=== PATIENT | female | born 1990 | race Caucasian/White ===

== ENCOUNTER 2020-12-03 16:57 | Inpatient (IN) | payer OTHER, SELFPAY ==
[2020-12-03] VITALS (10 sets, daily range): BP systolic 130–140; BP diastolic 57–75; PULSE 70–79; RESP 16–18; TEMP 36.8; BMI 39.4
--- OUTSIDE RECORDS SUMMARY | 2020-12-03 17:04 | XMS_ITS ---
:1990 Author Care Team Providers Name Role Phone Edwige Martínez Primary Care Provider Unavailable Allergies Code Code System Name Reaction Severity Status Onset NKDA ? Medications Name Status Start Date Stop Date ? ? OneTouch Delica Plus Lancet 33 gauge Active ? Not available USE FOUR TIMES DAILY TO TEST BLOOD SUGAR OneTouch Verio Reflect Meter Active ? Not available USE TO TEST BLOOD SUGAR FOUR TIMES DAILY OneTouch Verio test strips Active ? Not a vailable USE FOUR TIMES DAILY TO TEST BLOOD SUGAR Active ? Not available Problems Name Status Onset Date Source ? Active 05/28/2020 ? Procedures Date Name Performed by ? 05/25/2020 US, Obstetric, Nuchal Translucency Marykenny ille [address] [place] [address] ([address]) 07/22/2020 US, Obstetric, 2Nd or 3Rd Trimester Lucinda aguirre [address] [place] [address] ([address]) 08/21/2020 US, Obstetric, Follow-up [place] [address] [place] [address] ([address]) 10/05/2020 , Obstetric, Follow-up [place]
--- OUTSIDE RECORDS SUMMARY | 2020-12-03 17:04 | XMS_ITS | Encounter Summary ---
:1990 Author Reason for Visit None recorded. Assessment and Plan 1. Maternal obesity complicating , childbirth and the puerperium, antepartum ? non-stress test Discussion Note: None recorded.Patient educational handouts: No information available. Plan of Care Reminders Provider Appointments Ob Routine 12/08/2020 Ajit Batres, 10:00AM CNM ? Return to on or around [facility] 01/07/2021 MD Kirstie Lab None ? ? recorded. Referral None ? ? recorded. Procedures None ? ? recorded. Surgeries None ? ? recorded. Imaging Non-stress 11/27/2020 [place] Test Medications Name Start Date ? ? OneTouch Delica Plus Lancet 33 gauge ? USE FOUR TIMES DAILY TO TEST BLOOD SUGAR OneTouch Verio Reflect Meter ? USE TO TEST BLOOD SUGAR FOUR TIMES DAILY OneTouch Verio test strips ? USE FOUR TIMES DAILY TO TEST BLOOD SUGAR ? Medications Administered None recorded. Vitals Blood Pressure 131/86 mm[Hg] Results Lab Results None recorded. Allergies Code Code System Name Reaction Severity Onset NKDA ? ? ?
--- OUTSIDE RECORDS SUMMARY | 2020-12-03 17:04 | XMS_ITS | Encounter Summary ---
:1990 Author Reason for Visit OB visit 39wks Assessment and Plan 1. Routine care 2. -induced hypertensio n ? CBC w/ auto diff ? CMP, serum or plasma ? uric acid, serum or plasma Discussion Note: None recorded.Patient educational handouts: No information available. Plan of Care Reminders Provider Appointments Ob Routine 12/08/2020 Ajit Batres, 10:00AM CNM ? Return to on or around [facility] 01/07/2021 MD Kirstie Lab CBC W/ 12/01/2020 [facility] (Lab) ? CMP, Serum 12/01/2020 [facility] or Plasma [facility] (Lab) ? Uric Acid, 12/01/2020 [facility] Serum or Plasma [facility] (Lab) Referral None ? ? recorded. Procedures None ? ? recorded. Surgeries None ? ? recorded. Imaging None ? ? recorded. Medications Name Start Date ? ? OneTouch Delica Plus Lancet 33 gauge ? USE FOUR TIMES DAILY TO TEST BLOOD SUGAR OneTouch Verio Reflect Meter ? USE TO TEST BLOOD SUGAR FOUR TIMES DAILY
--- OUTSIDE RECORDS SUMMARY | 2020-12-03 17:04 | XMS_ITS | Encounter Summary ---
:1990 Author Reason for Visit None recorded. Assessment and Plan 1. Gestational diabetes mellitus , class A>1< Pt here for diet teaching. Adela t over ideal ranges for FBS and pp BS. Went over carb counting and carb ranges for e ach meal/snack. Gave ideas for foods to eat for meals/snacks. Discussed drink option s and to avoid soda and juice. Told pt she can go online to ADA for meal options or to look up low carb meal recipes online for ideas as well. Pt picked up glucometer y esterday, but forgot to bring in BS log. Pt states fasting yesterday was 94 and toda y was 96. Recommended high protein bedtime snack and exercise to see if this helps fasting levels. Told pt to continue checking BS QID and adjusting diet to follow low carb diet to try to keep BS within normal range. Pt aware if sugars aren't control led by diet we would discuss starting insulin. Went over NST schedule with pt and importance of keeping these appts and checking BS for her and baby's health. P t will bring in BS to appt on 10/05/20 for review. Pts questions were answered and pt verbalized understanding. bnROBBIN badillo ? non-stress test Discussion Note: None recorded.Patient educational handouts: No information available. Plan of Care Reminders Provider Appointments Ob Routine 12/08/2020 Ajit Batres, 10:00AM CNM ? Return to on or around [facility] 01/07/2021 MD Kirstie Lab None ? ? recorded. Referral None ? ? recorded. Procedures None ? ? recorded.
--- OUTSIDE RECORDS SUMMARY | 2020-12-03 17:05 | XMS_ITS | Encounter Summary ---
:1990 Author Reason for Visit OB visit Assessment and Plan Assessment Note Patient is ___weeks . Discu ssed plan. 1. Routine care Discussion Note: None recorded.Patient educational handouts: No [...] SUGAR ? Medications Administered None recorded. Vitals Height Weight BMI Blood Pressure 5 ft 5 in 257 lbs 42.8 kg/m2 132/81 mm[Hg] Results Lab Results None recorded. Allergies Code Code System Name Reaction Severity Onset NKDA ? ?
--- OUTSIDE RECORDS SUMMARY | 2020-12-03 17:05 | XMS_ITS | Encounter Summary ---
:1990 Author Reason for Visit None recorded. Assessment and Plan 1. Gestational diabetes mellitus , class A>1< ? non-stress test Discussion Note: None recorded.Patient educational handouts: No information available. Plan of Care Reminders Provider Appointments Ob Routine 12/08/2020 Ajit Batres, 10:00AM CNM ? Return to on or around [facility] 01/07/2021 MD Kirstie Lab None ? ? recorded. Referral None ? ? recorded. Procedures None ? ? recorded. Surgeries None ? ? recorded. Imaging Non-stress 11/24/2020 Roxie brunner Test Medications Name Start Date ? ? OneTouch Delica Plus Lancet 33 gauge ? USE FOUR TIMES DAILY TO TEST BLOOD SUGAR OneTouch Verio Reflect Meter ? USE TO TEST BLOOD SUGAR FOUR TIMES DAILY OneTouch Verio test strips ? USE FOUR TIMES DAILY TO TEST BLOOD SUGAR ? Medications Administered None recorded. Vitals None recorded. Results Lab Results None recorded. Allergies Code Code System Name Reaction Severity Onset NKDA ? ? ? Problems Name Status Onset Date Source ? Preg
--- OUTSIDE RECORDS SUMMARY | 2020-12-03 17:05 | XMS_ITS | Encounter Summary ---
:1990 Author Reason for Visit None recorded. Assessment and Plan 1. Maternal obesity complicating , childbirth and the puerperium, antepartum ? US, obstetric, biophysical profile + non-stress test ? US, obstetric, follow-up Discussion Note: None recorded.Patient educational handouts: No information available. Plan of Care Reminders Provider Appointments Ob Routine 12/08/2020 Ajit Batres, 10:00AM CNM ? Return to on or around [facility] 01/07/2021 MD Kirstie Lab None ? ? recorded. Referral None ? ? recorded. Procedures None ? ? recorded. Surgeries None ? ? recorded. Imaging US, 11/24/2020 [facility], Biophysical Profile + Non-stress Test ? US, 11/24/2020 [facility], Follow-up Medications Name Start Date ? ? OneTouch Delica Plus Lancet 33 gauge ? USE FOUR TIMES DAILY TO TEST BLOOD SUGAR OneTouch Verio Reflect Meter ? USE TO TEST BLOOD SUGAR FOUR TIMES DAILY OneTouch Verio test strips ? USE FOUR TIMES DAILY TO TEST BLOOD SUGAR ? Medications Administered None recorded. Vitals None recorded. Results
--- OUTSIDE RECORDS SUMMARY | 2020-12-03 17:05 | XMS_ITS | Encounter Summary ---
:1990 Author Reason for Visit OB visit Assessment and Plan 1. Gestational diabetes mellitus , class A>1< Discussion Note: None recorded.Patient educational handouts: No [...] ft 5 in 257 lbs 42.8 kg/m2 124/81 mm[Hg] Results Lab Results None recorded. Allergies Code Code System Name Reaction Severity Onset NKDA ? ? ? Problems Name Status Onset Date Source ?
--- OUTSIDE RECORDS SUMMARY | 2020-12-03 17:06 | XMS_ITS | Encounter Summary ---
[...] ? recorded. Procedures None ? ? recorded. S
--- OUTSIDE RECORDS SUMMARY | 2020-12-03 17:06 | XMS_ITS | Encounter Summary ---
:1990 Author Reason for Visit OB visit 36wks GBS today Assessment and Plan 1. Routine care Discussion Note: None recorded.Patient [...] BMI Blood Pressure 5 ft 5 in 256 lbs 42.6 kg/m2 119/77 mm[Hg] Results Lab Results None recorded. Allergies Code Code System Name Reaction Severity Onset NKDA ? ? ? Problems Name Status Onset Date Source ?
--- OUTSIDE RECORDS SUMMARY | 2020-12-03 17:07 | XMS_ITS | Encounter Summary ---
[...] Care Reminders Provider Appointments Ob Routine 12/08/2020 Ajti Batres, 10:00AM CNM ? Return to on or around [facility] 01/07/2021 MD Kirstie Lab None ? ? recorded. Referral None ? ? recorded. Procedures None ? ? recorded.
--- OUTSIDE RECORDS SUMMARY | 2020-12-03 17:07 | XMS_ITS | Encounter Summary ---
:1990 Author Reason for Visit OB visit 35wks Assessment and Plan 1. Routine care Discussion [...] BMI Blood Pressure 5 ft 5 in 254 lbs 42.3 kg/m2 113/76 mm[Hg] Results Lab Results None recorded. Allergies Code Code System Name Reaction Severity Onset NKDA ? ? ? Problems Name Status Onset Date Source ?
--- OUTSIDE RECORDS SUMMARY | 2020-12-03 17:08 | XMS_ITS | Encounter Summary ---
[...] BMI Blood Pressure 5 ft 5 in 252 lbs 41.9 kg/m2 119/73 mm[Hg] Results Lab Results None recorded. Allergies Code Code System Name Reaction Severity Onset NKDA ? ?
--- OUTSIDE RECORDS SUMMARY | 2020-12-03 17:09 | XMS_ITS | Encounter Summary ---
[...] ft 5 in 254 lbs 42.3 kg/m2 123/76 mm[Hg] Results Lab Results None recorded. Allergies Code Code System Name Reaction Severity Onset NKDA ? ?
--- OUTSIDE RECORDS SUMMARY | 2020-12-03 17:09 | XMS_ITS | Encounter Summary ---
:1990 Author Reason for Visit OB visit 33wks Assessment and Plan 1. Routine care Discussion Note: None recorded.Patient educational handouts: No information available. Plan of Care Reminders Provider Appointments Ob Routine 12/08/2020 Aijt Batres, 10:00AM CNM ? Return to on [...] BMI Blood Pressure 5 ft 5 in 255 lbs 42.4 kg/m2 122/75 mm[Hg] Results Lab Results None recorded. Allergies Code Code System Name Reaction Severity Onset NKDA ? ? ? Problems Name Status Onset Date Source ?
--- OUTSIDE RECORDS SUMMARY | 2020-12-03 17:10 | XMS_ITS | Encounter Summary ---
[...] ft 5 in 256 lbs 42.6 kg/m2 117/73 mm[Hg] Results Lab Results None recorded. Allergies Code Code System Name Reaction Severity Onset NKDA ? ?
--- OUTSIDE RECORDS SUMMARY | 2020-12-03 17:10 | XMS_ITS | Encounter Summary ---
:1990 Author Reason for Visit OB visit OB [id number] EDC 12/08/2020 LMP 03/03/2020 Assessment and Plan Assessment Note Patient is __29_weeks . Dis cussed plan. 1. Routine care Discussion Note: None [...] ft 5 in 256 lbs 42.6 kg/m2 110/69 mm[Hg] Results Lab Results None recorded. Allergies Code Code System Name Reaction Severity Onset
--- OUTSIDE RECORDS SUMMARY | 2020-12-03 17:10 | XMS_ITS | Encounter Summary ---
[...] questions were answered and pt verbalized understanding. bnaby RN ? US, obstetric, follow-up Discussion Note: None recorded.Patient educational handouts: No information available. Plan of Care Reminders Provider Appointments Ob Routine 12/08/2020 Ajit Batres, 10:00AM CNM ? Return to on or around [facility] 01/07/2021 MD Kirstie Lab None ? ? recorded. Referral None ? ? recorded. Procedures None ? ? recorded.
--- OUTSIDE RECORDS SUMMARY | 2020-12-03 17:10 | XMS_ITS | Encounter Summary ---
[...] questions were answered and pt verbalized understanding. ROBBIN lassiter Discussion Note: None recorded.Patient educational handouts: No information available. Plan of Care Reminders Provider Appointments Ob Routine 12/08/2020 Ajit Batres, 10:00AM CNM ? Return to on or around [facility] 01/07/2021 MD Kirstie Lab None ? ? recorded. Referral None ? ? recorded. Procedures None ? ? recorded. Surgeries None ? ?
[2020-12-03 18:13] LABS: Basophils Absolute Auto 0.1 K/mm3 (0.0-0.1); Basophils Percent Auto 0.6 % (0.2-1.2); Eosinophils Absolute Auto 0.3 K/mm3 (0-0.3); Eosinophils Percent Auto 2.2 % (0-4.4); Hematocrit 36.2 % (37.0-47.0); Hemoglobin 12.2 g/dL (12.0-15.0); Immature Granulocyte Absolute 0.05 K/mm3 (0.00-0.031); Immature Granulocyte Percent A 0.4 % (0-0.5); Lymphocytes Absolute Auto 2.64 K/mm3 (0.9-3.2); Mean Corpuscular HGB Conc 33.7 g/dl (32-36); Mean Corpuscular Hemoglobin 29.2 pg (26-34); Mean Corpuscular Volume 86.6 fl (80-100); Mean Platelet Volume 11.3 fl (7.4-10.4); Monocytes Absolute Auto 0.8 K/mm3 (0.1-0.6); Monocytes Percent Auto 5.8 % (2.6-8.5); Neutrophils Absolute Auto 9.3 K/mm3 (1.3-6.7); Platelet Count Result 203 k/mm3 (150-375); Red Blood Count 4.18 M/mm3 (4.2-5.4); Red Cell Distribution Width 12.8 % (11.5-14.5); White Blood Count 13.2 K/mm3 (4.5-10.0)
[2020-12-03] MEDS: DINOPROSTONE 10 MG VAG INSERT VAGINAL (18:20)
[2020-12-03] MEDS: AMPICILLIN 2 GM/NS 100 ML 2 GM/100 ML BAG IVPB (18:30)
[2020-12-03] MEDS: LACTATED RINGERS 1,000 ML 125 ML IV CONT (18:31)
--- NOTE | 2020-12-03 18:52 | LDADM ---
This patient, Honey Urena, was admitted to Labor/Delivery/Recovery 109 on 12/03/20 at 16:57. Plans for labor, pain management and were discussed with patient. Patient/family oriented to hospital policies and general routines including ID bracelet, bed and alarms, visiting hours, pain management, procedures, bathroom and other care routines, personal items, smoking policy, room service/diet and guest tray routines, infant security routines, call light and visiting hours. Patient/Family are encouraged to report perceived risks to care and to ask questions if they do not understand what they are told or what they should do. See OBIX for further documentation.
[2020-12-03 21:28] LABS: Glucose Point of Care 85 mg/dl (65-105)
[2020-12-03 21:40] LABS: Amphetamine Screen Urine Negative (Negative); Barbiturate Screen Urine Negative (Negative); Benzodiazepines Screen Urine Negative (Negative); Cannabinoid Screen Urine Positive (Negative); Cocaine Screen Urine Negative (Negative); Methadone Screen Urine Negative (Negative); Opiate Screen Urine Negative (Negative); Phencyclidine Screen Urine Negative (Negative)
--- NOTE | 2020-12-03 22:00 | WPDANESEPP ---
Anes - Eval Pre Procedure Procedure: labor epidural Date/Time: 12/03/20 22:00 Surgeon: demetrius Preop Diagnosis: pain during labor Pre Op Diagnosis: IOL Patient Data Age: 30 Gender: F Height: 1.65 m Weight: 107.4 kg Last Vital Signs Temp 36.8 C 12/03/20 21:37 Pulse 72 12/03/20 20:01 Resp 16 12/03/20 21:37 BP 132/71 12/03/20 20:01 Allergies Allergy/AdvReac Type Severity Reaction Status Date / Time No Known Allergies Allergy Unverified 01/04/15 11:44 Home Medications Medication Instructions Recorded Confirmed Type PNV cmb#95-ferrous fumarate-FA 1 tablet PO DAILY 11/09/20 11/09/20 History [] Laboratory Tests 12/03/20 12/03/20 12/03/20 18:03 18:03 18:03 WBC 13.2 K/mm3 H K/mm3 (4.5-10.0) RBC 4.18 M/mm3 L M/mm3 (4.2-5.4) Hgb 12.2 g/dL g/dL (12.0-15.0) Hct 36.2 % L % (37.0-47.0) MCV 86.6 fl fl (80-100) MCH 29.2 pg pg (26-34) MCHC 33.7 g/dl g/dl (32-36) RDW 12.8 % % (11.5-14.5) Plt Count 203 k/mm3 k/mm3 (150-375) MPV 11.3 fl H fl (7.4-10.4) Immature Gran % (Auto) 0.4 % % (0-0.5) Neut % (Auto) 71.0 % % (45.5-73.1) Lymph % (Auto) 20.0 % % (18.3-44.2) Bacon % (Auto) 5.8 % % (2.6-8.5) Eos % (Auto) 2.2 % % (0-4.4) Baso % (Auto) 0.6 % % (0.2-1.2) Lymph # (Auto) 2.64 K/mm3 K/mm3 (0.9-3.2) Bacon # (Auto) 0.8 K/mm3 H K/mm3 (0.1-0.6) Eos # (Auto) 0.3 K/mm3 K/mm3 (0-0.3) Baso # (Auto) 0.1 K/mm3 K/mm3 (0.0-0.1) Abs Immat Gran (auto) 0.05 K/mm3 H K/mm3 (0.00-0.031) Absolute Neuts (auto) 9.3 K/mm3 H K/mm3 (1.3-6.7) Absolute Nucleated RBC 0.0 K/mm3 K/mm3 (0.0-0.012) Nucleated RBC % 0.0 % % (0.0-0.2) POC Capillary Glucose Urine Opiates Screen Urine Methadone Screen Ur Barbiturates Screen Ur Phencyclidine Scrn Ur Amphetamine Screen U Benzodiazepines Scrn Urine Cocaine Screen U Cannabinoids Screen RPR Pending Blood Type A Positive Antibody Screen Negative 12/03/20 12/03/20 20:39 21:26 WBC RBC Hgb Hct MCV MCH MCHC RDW Plt Count MPV Immature Gran % (Auto) Neut % (Auto) Lymph % (Auto) Bacon % (Auto) Eos % (Auto) Baso % (Auto) Lymph # (Auto) Bacon # (Auto) Eos # (Auto) Baso # (Auto) Abs Immat Gran (auto) Absolute Neuts (auto) Absolute Nucleated RBC Nucleated RBC % POC Capillary Glucose 85 mg/dl mg/dl (65-105) Urine Opiates Screen Negative (Negative) Urine Methadone Screen Negative (Negative) Ur Barbiturates Screen Negative (Negative) Ur Phencyclidine Scrn Negative (Negative) Ur Amphetamine Screen Negative (Negative) U Benzodiazepines Scrn Negative (Negative) Urine Cocaine Screen Negative (Negative) U Cannabinoids Screen Positive A (Negative) RPR Blood Type Antibody Screen Patient hx anesthesia problems: none Family hx anesthesia problems: none Results Review: All pre-operative results and documents have been reviewed as part of the pre-operative evaluation. [facility] Past Medical History Medical History (Updated 12/03/20 @ 22:01 by Jessa Kaiser CRNA) Intrauterine Obesity (BMI 30-39.9) Family History Family History (Updated 11/09/20 @ 12:36 by Rosalie Bergman RN) Other No pertinent family history in first degree relatives Social History Social History Smoking status: Never smoker Additional smoking assess
[2020-12-03] MEDS: AMPICILLIN 1 GM/NS 50 ML 1 GM/50 ML BAG IVPB (22:34)
[2020-12-04] VITALS (134 sets, daily range): BP systolic 102–167; BP diastolic 49–115; PULSE 58–139; RESP 16–18; TEMP 36.4–37.2; O2SAT 84–100
[2020-12-04] MEDS: AMPICILLIN 1 GM/NS 50 ML 1 GM/50 ML BAG IVPB ×5 (03:04→19:15)
[2020-12-04 03:12] LABS: Glucose Point of Care 134 mg/dl (65-105)
[2020-12-04] MEDS: OXYTOCIN 30 UNITS/NS 500 ML 30 UNITS/500 ML BAG 6 UNITS IV CONT (07:00)
[2020-12-04] MEDS: fentaNYL CITRATE INJ (*CRX) 100 MCG/2 ML VIAL IV PUSH ×4 (07:02→13:29)
[2020-12-04 07:10] LABS: Glucose Point of Care 119 mg/dl (65-105)
--- NOTE | 2020-12-04 07:29 | WPDOBADMIT ---
Obstetrics - Admit Note Admission Note: record reviewed. No pertinent additions to the history and/or any subsequent changes in the physical findings that are not consistent with the expected course of the were found.MIL, GDM, Unable to rupture due to pt pain, 1 cm, continue pitocin Additions to the history and/or subsequent changes in the physical findings follow. None.
[2020-12-04] MEDS: LACTATED RINGERS 1,000 ML 125 ML IV CONT ×3 (10:11→17:21)
[2020-12-04 10:56] LABS: Glucose Point of Care 80 mg/dl (65-105)
[2020-12-04 15:18] LABS: Glucose Point of Care 92 mg/dl (65-105)
[2020-12-04 17:24] LABS: Glucose Point of Care 89 mg/dl (65-105)
[2020-12-04 19:12] LABS: Glucose Point of Care 105 mg/dl (65-105)
--- NOTE | 2020-12-04 21:55 | P.PCNOB_ITS ---
OB - Delivery Note Procedure Delivery date: 12/04/20 Procedure: vaginal delivery events: Gestational Diabetes Intrapartal events: None Induction method: AROM, per pitocin protocol and per cervidil protocol Delivery monitor: external FHT, external uterine and internal uterine Route of delivery: Episiotomy description: None Laceration Description: Periurethral (bilateral) Delivery repair: vicryl Specimen: Yes Quantitative Blood Loss (ml): 205 Anesthesia type: Epidural Disposition: floor [place] Baby Date of : 12/04/20 Time of : 21:34 Weeks of gestation at delivery: 39 Infant gender: Male Weight (pounds): 7 Weight (ounces): 13 presentation: vertex position: Left Occiput Anterior Placenta delivery description: Spontaneous cord vessel description: 3 Vessels, Clamped/Cut and Delayed Cord Clamping score one minute: 8 score five minutes: 9 Narrative: mother and baby skin to skin in stable condition
[2020-12-05] MEDS: BENZOCAINE 20% AER SPR (*SP) 56 GM CAN 1 SPRAY TOPICAL
[2020-12-05] MEDS: WITCH HAZEL 40 PADS 1 PAD TOPICAL
[2020-12-05 00:01] VITALS: BP 134/69; PULSE 85
--- NOTE | 2020-12-05 00:14 | PC.NURSE ---
Patient transferred to post room #291 via wheel chair. Support person present. Oriented to unit, room, information board, rooming in, admission packet and security measures. Patient verbalizes understanding.
[2020-12-05 00:20] VITALS: BP 129/72; PULSE 85; RESP 18; TEMP 36.9; O2SAT 100
--- NOTE | 2020-12-05 03:12 | PC.NURSE ---
Patient's IV dose of pitocin has completed, pt is saline locked now. Pt received 500 ml at 125 ml/hr.
[2020-12-05 04:09] LABS: Hematocrit 31.7 % (37.0-47.0); Hemoglobin 10.9 g/dL (12.0-15.0)
[2020-12-05 08:15] VITALS: BP 123/73; PULSE 86; RESP 18; TEMP 36.6
--- NOTE | 2020-12-05 09:19 | PM.OBPNVD ---
OB - PN: Subj Subjective Date/time seen: 12/05/20 09:19 Patient comments: no complaints baby status: doing well OB - PN: Obj Data Labs CBC & Chem 7: 12/05/20 03:46 Labs: Laboratory Results - last 24 hr 12/04/20 12/04/20 12/04/20 10:52 15:12 17:21 Hgb Hct POC Capillary Glucose 80 92 89 12/04/20 12/05/20 19:08 03:46 Hgb 10.9 L Hct 31.7 L POC Capillary Glucose 105 OB - PN A/P Plan day: 1 Plan: routine care Time Spent With Patient Time: Total time spent is greater than 50% in coordination of care (as documented) at patient's floor/unit and/or counseling patient: Review of Systems Review of Systems: All systems reviewed & are unremarkable except as noted in HPI and below Exam Const: General: cooperative Orientation/consciousness: patient oriented x3
[2020-12-05 12:50] VITALS: BP 106/59; PULSE 97; RESP 18; TEMP 36.8
--- NOTE | 2020-12-05 13:08 | WPDANLDPN2 ---
Anes-Prog Note L&D Date/Time: 12/05/20 13:08 Comfortable throughout: labor and delivery Neuraxial method: epidural Epidural/Spinal procedure site: clean & non-tender Neuro status: Neuro function grossly intact. Cardiovascular status: normal Respiratory status: normal Airway patency: baseline Mental status: baseline Post-Op hydration status: normal Vital Signs: Last Vital Signs Temp 36.6 C 12/05/20 08:15 Pulse 86 12/05/20 08:15 Resp 18 12/05/20 08:15 BP 123/73 12/05/20 08:15 Pulse Ox 100 12/05/20 00:20 Pain score (VAS): 02/15 I/O: Intake & Output 12/04/20 12/05/20 12/05/20 23:59 07:59 15:59 Intake Total 1000 Output Total 100 Balance 900 Post-procedural complaints: none Patient feedback: Patient satisfied with anesthetic care.
[2020-12-05] MEDS: IBUPROFEN 600 MG TABLET PO ×2 (14:15→19:34)
[2020-12-05 15:38] LABS: Rapid Plasma Reagin Non-Reactive (NonReactive)
[2020-12-05 17:25] VITALS: BP 117/69; PULSE 89; RESP 16; TEMP 36.7
[2020-12-05 19:30] VITALS: BP 140/70; PULSE 88; RESP 18; TEMP 36.4
--- NOTE | 2020-12-05 21:32 | PC.NURSE ---
Patient viewed the discharge video Mother & Baby Care, The First Two Weeks online. Patient was given the opportunity and encouraged to ask questions. Patient verbalized understanding of information shared and has been given the mother/baby guide for home reference.
--- NOTE | 2020-12-06 08:35 | PM.OBPNVD ---
OB - PN: Subj Subjective Date/time seen: 12/06/20 08:35 Patient comments: no complaints baby status: doing well OB - PN: Obj Data Labs CBC & Chem 7: 12/05/20 03:46 Labs: Laboratory Results - last 24 hr 12/03/20 18:03 RPR Non-reactive OB - PN A/P Plan day: 2 Plan: routine care and discharge home Time Spent With Patient Time: Total time spent is greater than 50% in coordination of care (as documented) at patient's floor/unit and/or counseling patient: Review of Systems Review of Systems: All systems reviewed & are unremarkable except as noted in HPI and below Exam Const: General: cooperative, healthy appearing and comfortable Nutritional Appearance: average body habitus Orientation/consciousness: patient oriented x3 Limitations: no limitations
--- NOTE | 2020-12-06 08:37 | PM.OBDSVD ---
DS: Admitting Diagnosis Discharge Date 12/06/20 Admitting Diagnosis IOL, GDM OB - DS: Summary OB Procedures : None OB Procedures Intrapartum: Spontaneous Vag Delivery OB Procedures: : None Time Spent with Patient Time attestation: Total time spent providing and/or coordinating discharge services: DS: Data Data Completed and Pending Pending studies at discharge: Pending at discharge 12/05/20 00:54 Surgical [PTH] Routine Labs on day of discharge: Labs from last 24 hours 12/03/20 18:03 RPR Non-reactive Discharge Plan Discharge Attending physician on discharge: Moisés Thacker Discharging Clinician: Edwige Martínez Patient Disposition: Home, Self-Care Activity: pelvic rest Diet: regular Patient Instructions: Antibiotic Form Stand Alone Forms: General Discharge Information Follow-up/Referrals: Edwige Martínez, CNM [Certified Nurse Motor Vehicles Inspector] - 4 Weeks Discharge Medications: Continued PNV cmb#95-ferrous fumarate-FA [] 28 mg iron- 800 mcg Tablet 1 tablet PO DAILY RF: 0 Date of admission: 12/03/20 16:57 Primary Care Provider: PHYSICIAN,LITIGATION CLAIM REPRESENTATIVE Admitting Provider: Moisés Thacker Attending physician on admission: Moisés Thacker Condition: Stable
[2020-12-06 09:25] VITALS: BP 112/55; PULSE 82; RESP 18; TEMP 36.6
[2020-12-08 07:52] VITALS: BP 130/86; PULSE 81; RESP 20; TEMP 36.5; O2SAT 100
== END 2020-12-06 12:23 | disposition home or self-care (01) | DRG 560 ==
LOC: ANHLDR 17:15 → ANHOB2 12-05 01:07
PROVIDERS: Advanced Practice Midwife; Admitting Provider Obstetrics & Gynecology; Visit Provider Obstetrics & Gynecology
DX: O24.429 Gestational diabetes mellitus in childbirth, unspecified control (principal); Z37.0 Single live birth; Z3A.39 39 weeks gestation of pregnancy; O99.824 Streptococcus B carrier state complicating childbirth; O36.8330 Maternal care for abnormalities of the fetal heart rate or rhythm, third trimester, not applicable or unspecified; O71.82 Other specified trauma to perineum and vulva
CPT/HCPCS: 36415; 80307; 82948; 85014; 85018; 85025; 86592; 86850; 86900; 86901; 88307; A9270; J0290; J2590; J2795; J3010; J7120